=== PATIENT | male | born 1980 | race American Indian/Alaskan Native ===

== ENCOUNTER 2021-08-26 17:43 | Emergency (ER) | payer SELFPAY ==
[2021-08-27 02:24] VITALS: BP 148/99
== END 2021-08-27 02:30 | disposition home or self-care (01) ==
LOC: ED 17:43
DX: M62.830 Muscle spasm of back (principal); V89.2XXA Person injured in unspecified motor-vehicle accident, traffic, initial encounter; Y93.89 Activity, other specified; Y92.89 Other specified places as the place of occurrence of the external cause; Y99.8 Other external cause status
CPT/HCPCS: 72100; 99283